=== PATIENT | male | born 1990 | race Caucasian/White ===

== ENCOUNTER 2020-01-08 11:12 | Emergency (ER) | payer SELFPAY ==
[~2020-01-08] VITALS: Ht 185.4 cm; Wt 77.5 kg
[~2020-01-08 11:12] MED LIST: NO HOME MEDS
[2020-01-08] MEDS ORDERED: CefTRIAXone 250MG IM Kit w/LIDOcaine IM ONE (12:45)
[2020-01-08] MEDS ORDERED: azithromycin 250mg tablet PO ONE (12:45)
[2020-01-08 12:52] LABS: CLARITY,URINE CLOUDY (Clear); COLOR,URINE YELLOW (Yellow); GLUCOSE, URINE NEGATIVE (Neg); KETONES,URINE NEGATIVE (Neg); LEUKOCYTE ESTERASE ,URINE LARGE (Neg); NITRITES, URINE NEGATIVE (Neg); OCCULT BLOOD,URINE TRACE-INTACT (Neg); PH,URINE 6.5 (4.8-8.0); PROTEIN,URINE NEGATIVE (Neg); UROBILINOGEN,URINE 0.2 E.U/dL (0.2-1.0)
[2020-01-08 12:53] LABS: UA COLLECTION TYPE CLN CATCH MIDSTREAM
[2020-01-08 12:59] VITALS: BP 125/71
[2020-01-08 13:03] LABS: BACTERIA,URINE FEW /HPF (Neg); MUCUS STRANDS FEW /LPF (Neg); RBC,URINE 0-2 /HPF (0-2); SQUAMOUS EPITHELIAL CELL,UR FEW /LPF (FEW); TRANSITIONAL EPI CELLS,URINE FEW /HPF; WBC,URINE 30-50 /HPF (0-4)
[2020-01-08 13:04] LABS: WBC CLUMPS,URINE MODERATE /HPF (NEGATIVE)
[2020-01-10 06:11] LABS: RPR Non Reactive (Non Reactive)
== END 2020-01-08 13:02 | disposition home or self-care (01) ==
LOC: ER 11:12
DX: R30.0 Dysuria (principal); Z11.3 Encounter for screening for infections with a predominantly sexual mode of transmission; F12.90 Cannabis use, unspecified, uncomplicated; F15.90 Other stimulant use, unspecified, uncomplicated
CPT/HCPCS: 36415; 81001; 86592; 87088; 87491; 87591; 96372; 99283; J0696

== ENCOUNTER 2021-07-09 08:41 | Emergency (ER) | payer MEDICAID ==
[~2021-07-09] VITALS: Ht 188 cm; Wt 71.5 kg
[2021-07-09 09:04] VITALS: BP 120/72
== END 2021-07-09 09:13 | disposition home or self-care (01) ==
LOC: ER 08:42
DX: F15.20 Other stimulant dependence, uncomplicated (principal); R00.0 Tachycardia, unspecified; F12.90 Cannabis use, unspecified, uncomplicated; Z72.89 Other problems related to lifestyle
CPT/HCPCS: 99281

== ENCOUNTER 2021-07-21 08:03 | Emergency (ER) | payer MEDICAID ==
[~2021-07-21] VITALS: Ht 188 cm; Wt 77.3 kg
[2021-07-21 08:11] VITALS: BP 126/74
== END 2021-07-21 09:14 | disposition home or self-care (01) ==
LOC: ER 08:03
DX: F15.20 Other stimulant dependence, uncomplicated (principal); F12.90 Cannabis use, unspecified, uncomplicated; Z72.89 Other problems related to lifestyle
CPT/HCPCS: 99281

== ENCOUNTER 2021-12-03 12:48 | Emergency (ER) | payer MEDICAID, OTHER ==
[~2021-12-03] VITALS: Ht 188 cm; Wt 71.8 kg
[2021-12-03 13:15] VITALS: BP 133/82
== END 2021-12-04 02:31 | disposition left against medical advice (07) ==
LOC: ER 12:49
DX: M54.2 Cervicalgia (principal); Z53.21 Procedure and treatment not carried out due to patient leaving prior to being seen by health care provider
CPT/HCPCS: 72125

== ENCOUNTER 2023-08-12 21:05 | Emergency (ER) | payer MEDICAID, OTHER, SELFPAY ==
[~2023-08-12] VITALS: Ht 188 cm; Wt 80.0 kg
[2023-08-12 23:31] LABS: BASOPHILS % (AUTO) 0.3 % (0-1); EOSINOPHILS # (AUTO) 0.1 X10'3 (0-0.9); EOSINOPHILS % (AUTO) 0.6 % (0-6); HEMATOCRIT 44.6 % (42.0-52.0); HEMOGLOBIN 15.1 g/dl (14.0-17.9); LYMPHOCYTES # (AUTO) 1.7 X10'3 (1.1-4.8); LYMPHOCYTES % (AUTO) 16.7 % (21-51); MEAN CORPUSCULAR HEMOGLOBIN 29.8 PG (27.0-31.0); MEAN CORPUSCULAR HGB CONC 33.8 g/dL (33.0-36.5); MEAN CORPUSCULAR VOLUME 88.1 FL (78-98); MEAN PLATELET VOLUME 9.2 FL (7.4-10.4); MONOCYTES # (AUTO) 0.5 X10'3 (0-0.9); MONOCYTES % (AUTO) 4.6 % (2-12); NEUTROPHILS % (AUTO) 77.8 % (42-75); PLATELET COUNT 187 X10'3 (140-440); RED BLOOD COUNT 5.06 X10'6 (4.70-6.10); RED CELL DISTRIBUTION WIDTH 13.5 % (11.5-14.5); WHITE BLOOD COUNT 10.2 X10'3 (4.5-11.0)
[2023-08-12 23:46] LABS: ANION GAP 2 (8-16); BILIRUBIN,TOTAL 0.7 MG/DL (0.1-1.0); BLOOD UREA NITROGEN 12 MG/DL (7-18); BUN/CREATININE RATIO 11.9 (10.0-20.0); CALCIUM 9.4 MG/DL (8.5-10.1); CHLORIDE 104 MMOL/L (99-107); CREATININE 1.01 MG/DL (0.60-1.10); GLUCOSE 106 MG/DL (70-104); POTASSIUM 4.4 MMOL/L (3.5-5.1); SODIUM 137 MMOL/L (135-145); TOTAL CARBON DIOXIDE 30.7 MMOL/L (24-32); eCRCL 119 ML/MIN; eGFR 86 ML/MIN
[2023-08-12 23:47] LABS: ALANINE AMINOTRANSFERASE 24 U/L (12-78); ALBUMIN 4.1 G/DL (3.4-5.0); ALBUMIN/GLOBULIN RATIO 1.1 (1.1-1.5); ALKALINE PHOSPHATASE 84 IU/L (46-116); ASPARTATE AMINO TRANSFERASE 16 U/L (10-37); ETHANOL < 10 MG/DL (<10); SALICYLATE 3.8 MG/DL (4.0-20.0)
[2023-08-12 23:50] LABS: ACETAMINOPHEN < 2.0 UG/ML (10-30)
[2023-08-12 23:54] LABS: URINE AMPHETAMINE SCREEN NEGATIVE (Neg); URINE BARBITUATE SCREEN NEGATIVE (Neg); URINE BENZODIAZEPINES SCREEN NEGATIVE (Neg); URINE CANNABINOID SCREEN NEGATIVE (Neg); URINE COCAINE SCREEN NEGATIVE (Neg); URINE METHADONE SCREEN NEGATIVE (Neg); URINE OPIATE SCREEN NEGATIVE (Neg); URINE PHENCYCLIDINE SCREEN NEGATIVE (Neg)
--- NOTE | 2023-08-13 04:39 | NUR ---
moved pt from hallway into room 13
--- NOTE | 2023-08-13 06:14 | NUR ---
safety and security officer states she will be bringing clerk typist for the [facility] monitor.
--- NOTE | 2023-08-13 08:31 | NUR ---
Patient currently sleeping comfortably, breathing normally
--- NOTE | 2023-08-13 09:21 | NUR ---
Patient sleeping at this time, a wrapped sandwich on the floor. Patient knocked on the wall of his room not too long ago. When I went to the [facility], 3 or 4 hospital security personnel were outside the room. I asked what was going on. One of the security told me that patient got upset because they had to remove the hospital phone at bedside as it should not be in the room.
--- NOTE | 2023-08-13 13:15 | NUR ---
Patient admitted still feeling depressed and has suicidal ideation. Snack offered to patient, not shown any interest. I did requested for a lunch tray for him
--- NOTE | 2023-08-13 13:18 | NUR ---
Per lab, they can still use the original urine sample sent last night for UA ordered today
[2023-08-13 13:43] LABS: BILIRUBIN,URINE NEGATIVE (Neg); CLARITY,URINE CLEAR (Clear); COLOR,URINE YELLOW (Yellow); GLUCOSE, URINE NEGATIVE (Neg); KETONES,URINE NEGATIVE (Neg); LEUKOCYTE ESTERASE ,URINE NEGATIVE (Neg); NITRITES, URINE NEGATIVE (Neg); OCCULT BLOOD,URINE SMALL (Neg); PROTEIN,URINE NEGATIVE (Neg); UROBILINOGEN,URINE 0.2 E.U/dL (0.2-1.0)
[2023-08-13 13:53] LABS: UA COLLECTION TYPE CLN CATCH MIDSTREAM
[2023-08-13 13:54] LABS: BACTERIA,URINE FEW /HPF (Neg); MUCUS STRANDS FEW /LPF (Neg); RBC,URINE 0-2 /HPF (0-2); SQUAMOUS EPITHELIAL CELL,UR FEW /LPF (FEW); WBC,URINE 0-4 /HPF (0-4)
--- NOTE | 2023-08-13 14:18 | NUR ---
tech faxed pt packet to [facility]
--- NOTE | 2023-08-13 18:50 | NUR ---
Patient brought from main ER. No report provided. Patient is oriented X4, he complains of S/I. He has a plan to hang self. Patient states his fiance left him yesterday. Patient is linear. He speaks in a calm voice. Patient states he at "[facility]." Patient is wearing an ankle braclet. He states his education officer knows he is here.
--- NOTE | 2023-08-13 19:00 | NUR ---
Patient is sleeping quietly in a low fowlers position.
--- NOTE | 2023-08-13 20:09 | NUR ---
Patient report given to [facility]. Patient is being considered for admission. TSH ordered.
[2023-08-13 20:53] LABS: THYROID STIMULATING HORMONE 0.78 ulU/ml (0.34-4.50)
--- NOTE | 2023-08-13 21:52 | NUR ---
Patient has been accepted to [facility] in [place]. Accepting PA is Ja. Patient will transfer around in AM.
--- NOTE | 2023-08-13 22:54 | NUR ---
pt. sleeping quietly in low fowlers position on right side.
--- NOTE | 2023-08-14 01:07 | NUR ---
pt. lying on back in low fowlers position sleeping. no distress
--- NOTE | 2023-08-14 03:00 | NUR ---
pt. lying on right side sleeping. No distress.
--- NOTE | 2023-08-14 04:57 | NUR ---
pt. lying on left side sleeping . No distress.
[2023-08-14 06:05] VITALS: BP 88/48; PULSE 63; TEMP 98.2; O2SAT 98
--- NOTE | 2023-08-14 06:46 | NUR ---
Patient laying supine with his eyes closed. Patient re-adjusted. No distress observed. Continue to monitor.
--- NOTE | 2023-08-14 08:23 | NUR ---
RN awoke patient for breakfast. Patient awoke and went back to sleep. Continue to monitor.
[2023-08-14 08:25] VITALS: RESP 16
--- NOTE | 2023-08-14 10:26 | NUR ---
Patient got up and demanded to go home. RN advised patient that he is on a hold and cannot go. Patient states "You better call Security because I'm about to lose my shit. I want my stuff and I'm going home." RN called Security for standby. Patient was laying in bed. RN asked patient if I gave him some oral Ativan would he take it. Patient stated yes. RN to get order. Continue to monitor. Security at nurse's station.
[2023-08-14] MEDS ORDERED: LORazepam 1 MG tablet PO ONE (10:35)
--- NOTE | 2023-08-14 10:41 | NUR ---
Patient states he hasn't eaten in 4 days. Patient states it's not because of the food, it's because he is depressed. Patient took the medication and laid back down. Continue to monitor.
--- NOTE | 2023-08-14 11:20 | NUR ---
RN gave patient an Ativan for his anxiety. Patient asked RN if this would effect his [facility]. RN said no and gave him the medication. RN later thought about it and thought it might affect the patient's status. RN called the [facility] and left them a message since they are closed today. It was my fault he took the medication. Patient was negative for all drugs on arrival to the hospital.
== END 2023-08-14 11:25 ==
LOC: ER 21:06
DX: R45.851 Suicidal ideations (principal); Z20.822 Contact with and (suspected) exposure to COVID-19
CPT/HCPCS: 36415; 80053; 80305; 80320; 80329; 81001; 84443; 85025; 87811; 99285

== ENCOUNTER 2024-03-08 08:53 | Emergency (ER) | payer MEDICAID ==
[~2024-03-08] VITALS: Ht 188 cm; Wt 81.0 kg
[2024-03-08 09:07] VITALS: BP 90/72; PULSE 98; RESP 15; TEMP 99.3; O2SAT 97
[2024-03-08] MEDS ORDERED: AZIT-164 PO (09:33)
== END 2024-03-08 09:46 | disposition home or self-care (01) ==
LOC: ER 08:54
DX: J40 Bronchitis, not specified as acute or chronic (principal); F12.90 Cannabis use, unspecified, uncomplicated; F15.90 Other stimulant use, unspecified, uncomplicated
CPT/HCPCS: 71045; 99283

== ENCOUNTER 2024-05-27 17:02 | Emergency (ER) | payer MEDICAID ==
[~2024-05-27] VITALS: Ht 188 cm; Wt 68.2 kg
[2024-05-27] MEDS: levetiracetam 250mg tablet PO ONE (18:17)
[2024-05-27 18:34] LABS: EOSINOPHILS # (AUTO) 0.1 X10'3 (0-0.9); MONOCYTES # (AUTO) 0.5 X10'3 (0-0.9); WHITE BLOOD COUNT 6.8 X10'3 (4.5-11.0)
[2024-05-27 18:36] LABS: BASOPHILS % (AUTO) 0.3 % (0-1); EOSINOPHILS % (AUTO) 1.2 % (0-6); HEMATOCRIT 40.9 % (42.0-52.0); LYMPHOCYTES % (AUTO) 29.9 % (21-51); MEAN CORPUSCULAR HEMOGLOBIN 30.4 PG (27.0-31.0); MEAN CORPUSCULAR HGB CONC 34.2 g/dL (33.0-36.5); MEAN CORPUSCULAR VOLUME 88.8 FL (78-98); MEAN PLATELET VOLUME 7.8 FL (7.4-10.4); MONOCYTES % (AUTO) 7.8 % (2-12); NEUTROPHILS # (AUTO) 4.1 X10'3 (1.8-7.7); NEUTROPHILS % (AUTO) 60.8 % (42-75); PLATELET COUNT 263 X10'3 (140-440); RED CELL DISTRIBUTION WIDTH 15.1 % (11.5-14.5)
[2024-05-27 18:52] LABS: BILIRUBIN,URINE SMALL (Neg); CLARITY,URINE CLEAR (Clear); COLOR,URINE YELLOW (Yellow); GLUCOSE, URINE NEGATIVE (Neg); KETONES,URINE 15 mg/dl (Neg); LEUKOCYTE ESTERASE ,URINE NEGATIVE (Neg); NITRITES, URINE NEGATIVE (Neg); OCCULT BLOOD,URINE TRACE-INTACT (Neg); PH,URINE 6.5 (4.8-8.0); PROTEIN,URINE NEGATIVE (Neg); UROBILINOGEN,URINE 0.2 E.U/dL (0.2-1.0)
[2024-05-27 18:55] LABS: ALANINE AMINOTRANSFERASE 20 U/L (12-78); ALBUMIN 4.2 G/DL (3.4-5.0); ALBUMIN/GLOBULIN RATIO 1.2 (1.1-1.5); ALKALINE PHOSPHATASE 81 IU/L (46-116); ANION GAP 10 (8-16); ASPARTATE AMINO TRANSFERASE 15 U/L (10-37); BILIRUBIN,TOTAL 0.8 MG/DL (0.1-1.0); BLOOD UREA NITROGEN 8 MG/DL (7-18); BUN/CREATININE RATIO 9.1 (10.0-20.0); CALCIUM 9.4 MG/DL (8.5-10.1); CHLORIDE 102 MMOL/L (99-107); CREATININE 0.88 MG/DL (0.60-1.10); GLUCOSE 96 MG/DL (70-104); POTASSIUM 3.5 MMOL/L (3.5-5.1); SODIUM 140 MMOL/L (135-145); TOTAL PROTEIN 7.7 G/DL (6.4-8.2); eCRCL 115 ML/MIN; eGFR > 90 ML/MIN
[2024-05-27 18:57] LABS: UA COLLECTION TYPE CLN CATCH MIDSTREAM
[2024-05-27 18:59] LABS: BACTERIA,URINE FEW /HPF (Neg); MUCUS STRANDS MODERATE /LPF (Neg); SQUAMOUS EPITHELIAL CELL,UR FEW /LPF (FEW); WBC,URINE 0-4 /HPF (0-4)
[2024-05-27 19:01] LABS: ETHANOL < 10 MG/DL (<10)
[2024-05-27 19:06] LABS: URINE AMPHETAMINE SCREEN POSITIVE (Neg); URINE BARBITUATE SCREEN NEGATIVE (Neg); URINE BENZODIAZEPINES SCREEN NEGATIVE (Neg); URINE CANNABINOID SCREEN NEGATIVE (Neg); URINE COCAINE SCREEN NEGATIVE (Neg); URINE METHADONE SCREEN NEGATIVE (Neg); URINE OPIATE SCREEN NEGATIVE (Neg); URINE PHENCYCLIDINE SCREEN NEGATIVE (Neg)
[2024-05-27] MEDS ORDERED: KEP500T PO (20:01)
[2024-05-27 20:11] VITALS: BP 130/67; PULSE 95; RESP 18; TEMP 98; O2SAT 99
== END 2024-05-27 20:13 | disposition home or self-care (01) ==
LOC: ER 17:02
DX: R56.9 Unspecified convulsions (principal); F12.90 Cannabis use, unspecified, uncomplicated; F15.90 Other stimulant use, unspecified, uncomplicated
CPT/HCPCS: 36415; 70450; 80053; 80305; 80320; 81001; 85025; 93005; 99285

== ENCOUNTER 2024-06-08 12:19 | Emergency (ER) | payer MEDICAID ==
[~2024-06-08] VITALS: Ht 175.3 cm; Wt 64.5 kg
[~2024-06-08 12:19] MED LIST changes: +KEP500T PO
[2024-06-08 12:21] VITALS: TEMP 98
[2024-06-08] MEDS ORDERED: LEVE500T PO (12:53)
[2024-06-08 13:34] LABS: BASOPHILS % (AUTO) 0.4 % (0-1); EOSINOPHILS # (AUTO) 0.1 X10'3 (0-0.9); EOSINOPHILS % (AUTO) 1.2 % (0-6); HEMATOCRIT 42.3 % (42.0-52.0); HEMOGLOBIN 14.3 g/dl (14.0-17.9); LYMPHOCYTES # (AUTO) 1.6 X10'3 (1.1-4.8); LYMPHOCYTES % (AUTO) 26.4 % (21-51); MEAN CORPUSCULAR HEMOGLOBIN 30.1 PG (27.0-31.0); MEAN CORPUSCULAR HGB CONC 33.9 g/dL (33.0-36.5); MEAN CORPUSCULAR VOLUME 88.7 FL (78-98); MEAN PLATELET VOLUME 8.1 FL (7.4-10.4); MONOCYTES # (AUTO) 0.6 X10'3 (0-0.9); MONOCYTES % (AUTO) 9.6 % (2-12); NEUTROPHILS # (AUTO) 3.9 X10'3 (1.8-7.7); NEUTROPHILS % (AUTO) 62.4 % (42-75); PLATELET COUNT 259 X10'3 (140-440); RED BLOOD COUNT 4.77 X10'6 (4.70-6.10); WHITE BLOOD COUNT 6.2 X10'3 (4.5-11.0)
[2024-06-08 13:48] LABS: ALANINE AMINOTRANSFERASE 18 U/L (12-78); ALBUMIN 4.2 G/DL (3.4-5.0); ALBUMIN/GLOBULIN RATIO 1.2 (1.1-1.5); ALKALINE PHOSPHATASE 94 IU/L (46-116); ANION GAP 11 (8-16); ASPARTATE AMINO TRANSFERASE 25 U/L (10-37); BILIRUBIN,TOTAL 0.6 MG/DL (0.1-1.0); BLOOD UREA NITROGEN 20 MG/DL (7-18); BUN/CREATININE RATIO 17.9 (10.0-20.0); CALCIUM 9.4 MG/DL (8.5-10.1); CHLORIDE 103 MMOL/L (99-107); CREATININE 1.12 MG/DL (0.60-1.10); GLUCOSE 96 MG/DL (70-104); POTASSIUM 3.8 MMOL/L (3.5-5.1); SODIUM 138 MMOL/L (135-145); TOTAL CARBON DIOXIDE 24.3 MMOL/L (24-32); TOTAL PROTEIN 7.8 G/DL (6.4-8.2); eCRCL 86 ML/MIN; eGFR 76 ML/MIN
[2024-06-08] MEDS: levetiracetam 250mg tablet PO ONE (14:56)
[2024-06-08] MEDS ORDERED: LEVE10002 PO (15:02)
[2024-06-08 15:05] VITALS: BP 118/77; PULSE 99; RESP 16; O2SAT 99
== END 2024-06-08 15:11 | disposition home or self-care (01) ==
LOC: ER 12:20
DX: G40.802 Other epilepsy, not intractable, without status epilepticus (principal); F12.90 Cannabis use, unspecified, uncomplicated; F15.90 Other stimulant use, unspecified, uncomplicated; Z72.89 Other problems related to lifestyle
CPT/HCPCS: 36415; 80053; 80177; 85025; 99284

== ENCOUNTER 2024-06-13 15:42 | Emergency (ER) | payer MEDICAID ==
[~2024-06-13] VITALS: Ht 188 cm; Wt 75.0 kg
[~2024-06-13 15:42] MED LIST changes: -KEP500T PO; +LEVE10002 PO; +LEVE500T PO; -NO HOME MEDS
[2024-06-13] MEDS: normal saline 1000ML IV soln IVB ONE (16:05)
[2024-06-13 16:45] LABS: BASOPHILS % (AUTO) 0.2 % (0-1); EOSINOPHILS # (AUTO) 0.1 X10'3 (0-0.9); EOSINOPHILS % (AUTO) 1.4 % (0-6); HEMATOCRIT 40.7 % (42.0-52.0); HEMOGLOBIN 13.8 g/dl (14.0-17.9); LYMPHOCYTES # (AUTO) 1.8 X10'3 (1.1-4.8); LYMPHOCYTES % (AUTO) 23.9 % (21-51); MEAN CORPUSCULAR HEMOGLOBIN 30.1 PG (27.0-31.0); MEAN CORPUSCULAR HGB CONC 33.8 g/dL (33.0-36.5); MEAN PLATELET VOLUME 8.1 FL (7.4-10.4); MONOCYTES # (AUTO) 0.5 X10'3 (0-0.9); MONOCYTES % (AUTO) 6.5 % (2-12); NEUTROPHILS # (AUTO) 5.2 X10'3 (1.8-7.7); PLATELET COUNT 255 X10'3 (140-440); RED BLOOD COUNT 4.57 X10'6 (4.70-6.10); RED CELL DISTRIBUTION WIDTH 15.2 % (11.5-14.5); WHITE BLOOD COUNT 7.6 X10'3 (4.5-11.0)
[2024-06-13] MEDS: LORazepam 2 mg/ml vial IV ONE ×2 (16:51)
[2024-06-13] MEDS: LORazepam 2 mg/ml vial ONE (16:51)
[2024-06-13] MEDS: levetiracetam inj 500 MG in normal saline 100ml IV soln 100 ML IV ONE (17:07)
[2024-06-13 17:36] LABS: ALANINE AMINOTRANSFERASE 23 U/L (12-78); ALBUMIN 3.6 G/DL (3.4-5.0); ALBUMIN/GLOBULIN RATIO 1.1 (1.1-1.5); ALKALINE PHOSPHATASE 95 IU/L (46-116); ANION GAP 8 (8-16); ASPARTATE AMINO TRANSFERASE 24 U/L (10-37); BILIRUBIN,TOTAL 0.3 MG/DL (0.1-1.0); BLOOD UREA NITROGEN 10 MG/DL (7-18); BUN/CREATININE RATIO 11.4 (10.0-20.0); CALCIUM 8.4 MG/DL (8.5-10.1); CHLORIDE 106 MMOL/L (99-107); CREATININE 0.88 MG/DL (0.60-1.10); GLUCOSE 92 MG/DL (70-104); MAGNESIUM 1.8 MG/DL (1.5-2.4); SODIUM 141 MMOL/L (135-145); TOTAL CARBON DIOXIDE 26.9 MMOL/L (24-32); TOTAL PROTEIN 6.8 G/DL (6.4-8.2); VALPROATE < 3.0 UG/ML (50-100); eCRCL 127 ML/MIN; eGFR > 90 ML/MIN
[2024-06-13] MEDS ORDERED: LEVE10002 PO (18:42)
[2024-06-13 19:17] VITALS: BP 112/68; PULSE 75; RESP 16; TEMP 98.4; O2SAT 97
== END 2024-06-13 19:21 | disposition home or self-care (01) ==
LOC: ER 15:42
DX: G40.89 Other seizures (principal); F12.90 Cannabis use, unspecified, uncomplicated; F15.90 Other stimulant use, unspecified, uncomplicated; Z79.899 Other long term (current) drug therapy; Z72.89 Other problems related to lifestyle
CPT/HCPCS: 36415; 80053; 80164; 80177; 83735; 85025; 96361; 96365; 96375; 99285; J1953; J2060; J7030

== ENCOUNTER 2024-06-14 16:57 | Emergency (ER) | payer MEDICAID ==
[~2024-06-14] VITALS: Ht 188 cm; Wt 75.0 kg
[2024-06-14 17:07] VITALS: TEMP 98.4
[2024-06-14] MEDS: HYDROcodone/acetaminophen 10/325mg tab PO ONE (17:51)
[2024-06-14] MEDS: ketorolac trometh. 30mg/ml inj. IV ONE (18:00)
[2024-06-14 18:02] LABS: BASOPHILS % (AUTO) 0.3 % (0-1); EOSINOPHILS # (AUTO) 0.1 X10'3 (0-0.9); EOSINOPHILS % (AUTO) 1.7 % (0-6); HEMATOCRIT 42.6 % (42.0-52.0); HEMOGLOBIN 14.5 g/dl (14.0-17.9); LYMPHOCYTES # (AUTO) 1.9 X10'3 (1.1-4.8); LYMPHOCYTES % (AUTO) 24.9 % (21-51); MEAN CORPUSCULAR HEMOGLOBIN 30.4 PG (27.0-31.0); MEAN CORPUSCULAR VOLUME 89.4 FL (78-98); MEAN PLATELET VOLUME 8.3 FL (7.4-10.4); MONOCYTES # (AUTO) 0.6 X10'3 (0-0.9); MONOCYTES % (AUTO) 7.8 % (2-12); NEUTROPHILS # (AUTO) 5.1 X10'3 (1.8-7.7); NEUTROPHILS % (AUTO) 65.3 % (42-75); PLATELET COUNT 264 X10'3 (140-440); RED BLOOD COUNT 4.76 X10'6 (4.70-6.10); WHITE BLOOD COUNT 7.8 X10'3 (4.5-11.0)
[2024-06-14 18:05] VITALS: BP 122/87; PULSE 89; RESP 18; O2SAT 100
[2024-06-14 18:24] LABS: ALANINE AMINOTRANSFERASE 17 U/L (12-78); ALBUMIN 3.7 G/DL (3.4-5.0); ALBUMIN/GLOBULIN RATIO 1.1 (1.1-1.5); ALKALINE PHOSPHATASE 94 IU/L (46-116); ANION GAP 1 (8-16); ASPARTATE AMINO TRANSFERASE 12 U/L (10-37); BILIRUBIN,TOTAL 0.3 MG/DL (0.1-1.0); BLOOD UREA NITROGEN 7 MG/DL (7-18); BUN/CREATININE RATIO 8.1 (10.0-20.0); CALCIUM 9.4 MG/DL (8.5-10.1); CHLORIDE 106 MMOL/L (99-107); CREATININE 0.86 MG/DL (0.60-1.10); GLUCOSE 84 MG/DL (70-104); POTASSIUM 4.2 MMOL/L (3.5-5.1); SODIUM 137 MMOL/L (135-145); TOTAL CARBON DIOXIDE 30.4 MMOL/L (24-32); TOTAL PROTEIN 7.2 G/DL (6.4-8.2); eCRCL 130 ML/MIN; eGFR > 90 ML/MIN
== END 2024-06-14 18:36 | disposition home or self-care (01) ==
LOC: ER 16:58
DX: R56.9 Unspecified convulsions (principal); F12.90 Cannabis use, unspecified, uncomplicated; F15.90 Other stimulant use, unspecified, uncomplicated; Z79.2 Long term (current) use of antibiotics
CPT/HCPCS: 36415; 80053; 85025; 96374; 99284; J1885

== ENCOUNTER 2024-06-21 21:07 | Emergency (ER) | payer MEDICAID ==
[~2024-06-21] VITALS: Ht 188 cm; Wt 68.8 kg
[2024-06-21 21:36] LABS: BASOPHILS % (AUTO) 0.3 % (0-1); EOSINOPHILS # (AUTO) 0.1 X10'3 (0-0.9); EOSINOPHILS % (AUTO) 1.2 % (0-6); HEMATOCRIT 39.7 % (42.0-52.0); HEMOGLOBIN 13.5 g/dl (14.0-17.9); LYMPHOCYTES # (AUTO) 2.1 X10'3 (1.1-4.8); LYMPHOCYTES % (AUTO) 25.9 % (21-51); MEAN CORPUSCULAR HEMOGLOBIN 29.9 PG (27.0-31.0); MEAN CORPUSCULAR VOLUME 87.9 FL (78-98); MEAN PLATELET VOLUME 8.1 FL (7.4-10.4); MONOCYTES # (AUTO) 0.5 X10'3 (0-0.9); MONOCYTES % (AUTO) 6.1 % (2-12); NEUTROPHILS # (AUTO) 5.3 X10'3 (1.8-7.7); NEUTROPHILS % (AUTO) 66.5 % (42-75); PLATELET COUNT 252 X10'3 (140-440); RED BLOOD COUNT 4.52 X10'6 (4.70-6.10); RED CELL DISTRIBUTION WIDTH 14.9 % (11.5-14.5)
[2024-06-21 21:53] LABS: ALBUMIN 3.8 G/DL (3.4-5.0); ANION GAP 9 (8-16); BLOOD UREA NITROGEN 9 MG/DL (7-18); BUN/CREATININE RATIO 7.3 (10.0-20.0); CHLORIDE 102 MMOL/L (99-107); CREATININE 1.24 MG/DL (0.60-1.10); GLUCOSE 103 MG/DL (70-104); POTASSIUM 3.6 MMOL/L (3.5-5.1); PRO BRAIN NATRIURETIC PEPTIDE 82 PG/ML (0-125); SODIUM 137 MMOL/L (135-145); TOTAL CARBON DIOXIDE 25.7 MMOL/L (24-32); eCRCL 82 ML/MIN; eGFR 67 ML/MIN
[2024-06-21] MEDS: LORazepam 2 mg/ml vial IV ONE (23:03)
[2024-06-21 23:47] VITALS: BP 134/83; PULSE 102; RESP 12; O2SAT 98
[2024-06-21] MEDS: levetiracetam 250mg tablet PO ONE (23:55)
[2024-06-22 00:06] VITALS: TEMP 98.1
== END 2024-06-22 00:09 | disposition home or self-care (01) ==
LOC: ER 21:08
DX: R07.89 Other chest pain (principal); R56.9 Unspecified convulsions; F12.90 Cannabis use, unspecified, uncomplicated; F15.90 Other stimulant use, unspecified, uncomplicated; Z79.899 Other long term (current) drug therapy; Z72.89 Other problems related to lifestyle
CPT/HCPCS: 36415; 71045; 80048; 83880; 84484; 85025; 93005; 96374; 99285; J2060

== ENCOUNTER 2024-06-26 07:23 | Outpatient (CLI) | payer MEDICAID | END 2024-06-26 23:59 | disposition home or self-care (01) | LOC: RAD 07:23 | PROVIDERS: ATTEND Family Medicine | DX: R56.9 Unspecified convulsions (principal) | CPT/HCPCS: 95816 ==

== ENCOUNTER 2024-07-09 18:20 | Emergency (ER) | payer MEDICAID ==
[~2024-07-09] VITALS: Ht 188 cm; Wt 65.9 kg
[2024-07-09 18:22] VITALS: TEMP 98
[2024-07-09 19:47] VITALS: BP 124/89; PULSE 86; RESP 16; O2SAT 99
== END 2024-07-09 19:48 | disposition home or self-care (01) ==
LOC: ER 18:20
DX: G40.909 Epilepsy, unspecified, not intractable, without status epilepticus (principal); F12.90 Cannabis use, unspecified, uncomplicated; F15.90 Other stimulant use, unspecified, uncomplicated; Z79.899 Other long term (current) drug therapy
CPT/HCPCS: 99284

== ENCOUNTER 2024-07-20 10:43 | Emergency (ER) | payer MEDICAID ==
[~2024-07-20] VITALS: Ht 177.8 cm; Wt 74.0 kg
[2024-07-20 10:48] VITALS: BP 112/80; PULSE 80; RESP 16; TEMP 97.8; O2SAT 96
== END 2024-07-20 13:52 | disposition left against medical advice (07) ==
LOC: ER 10:43
DX: G40.89 Other seizures (principal); Z53.21 Procedure and treatment not carried out due to patient leaving prior to being seen by health care provider

== ENCOUNTER 2024-08-09 22:28 | Emergency (ER) | payer MEDICAID ==
[~2024-08-09] VITALS: Ht 188 cm; Wt 70.5 kg
[2024-08-09 23:01] LABS: BASOPHILS % (AUTO) 0.4 % (0-1); EOSINOPHILS # (AUTO) 0.2 X10'3 (0-0.9); EOSINOPHILS % (AUTO) 2.4 % (0-6); HEMATOCRIT 43.5 % (42.0-52.0); HEMOGLOBIN 15.2 g/dl (14.0-17.9); LYMPHOCYTES # (AUTO) 2.7 X10'3 (1.1-4.8); LYMPHOCYTES % (AUTO) 31.9 % (21-51); MEAN CORPUSCULAR HEMOGLOBIN 30.8 PG (27.0-31.0); MEAN CORPUSCULAR HGB CONC 34.9 g/dL (33.0-36.5); MEAN CORPUSCULAR VOLUME 88.3 FL (78-98); MEAN PLATELET VOLUME 8.4 FL (7.4-10.4); MONOCYTES # (AUTO) 0.6 X10'3 (0-0.9); MONOCYTES % (AUTO) 7.6 % (2-12); NEUTROPHILS # (AUTO) 4.8 X10'3 (1.8-7.7); NEUTROPHILS % (AUTO) 57.7 % (42-75); PLATELET COUNT 233 X10'3 (140-440); RED BLOOD COUNT 4.93 X10'6 (4.70-6.10); RED CELL DISTRIBUTION WIDTH 14.5 % (11.5-14.5); WHITE BLOOD COUNT 8.4 X10'3 (4.5-11.0)
[2024-08-09 23:18] LABS: ALBUMIN 3.5 G/DL (3.4-5.0); ANION GAP 3 (8-16); BLOOD UREA NITROGEN 15 MG/DL (7-18); BUN/CREATININE RATIO 17.4 (10.0-20.0); CALCIUM 8.9 MG/DL (8.5-10.1); CHLORIDE 104 MMOL/L (99-107); CREATININE 0.86 MG/DL (0.60-1.10); GLUCOSE 80 MG/DL (70-104); SODIUM 137 MMOL/L (135-145); THYROID STIMULATING HORMONE 1.87 ulU/ml (0.34-4.50); TOTAL CARBON DIOXIDE 30.4 MMOL/L (24-32); eCRCL 122 ML/MIN; eGFR > 90 ML/MIN
[2024-08-09 23:20] LABS: ETHANOL < 10 MG/DL (<10)
[2024-08-09] MEDS: charcoal, activated 50 GM/240 ML bottle PO ONE (23:50)
[2024-08-10 09:06] LABS: BILIRUBIN,URINE NEGATIVE (Neg); CLARITY,URINE CLEAR (Clear); COLOR,URINE YELLOW (Yellow); GLUCOSE, URINE NEGATIVE (Neg); KETONES,URINE NEGATIVE (Neg); LEUKOCYTE ESTERASE ,URINE NEGATIVE (Neg); NITRITES, URINE NEGATIVE (Neg); OCCULT BLOOD,URINE TRACE-INTACT (Neg); PROTEIN,URINE NEGATIVE (Neg); UROBILINOGEN,URINE 0.2 E.U/dL (0.2-1.0)
[2024-08-10 09:08] LABS: UA COLLECTION TYPE CLN CATCH MIDSTREAM
[2024-08-10 09:13] LABS: URINE AMPHETAMINE SCREEN POSITIVE (Neg); URINE BARBITUATE SCREEN NEGATIVE (Neg); URINE BENZODIAZEPINES SCREEN NEGATIVE (Neg); URINE CANNABINOID SCREEN NEGATIVE (Neg); URINE COCAINE SCREEN NEGATIVE (Neg); URINE METHADONE SCREEN NEGATIVE (Neg); URINE OPIATE SCREEN NEGATIVE (Neg); URINE PHENCYCLIDINE SCREEN NEGATIVE (Neg)
[2024-08-10 09:18] LABS: SQUAMOUS EPITHELIAL CELL,UR FEW /LPF (FEW)
[2024-08-10 09:19] LABS: BACTERIA,URINE NONE SEEN /HPF (Neg); RBC,URINE 0-2 /HPF (0-2); WBC,URINE 0-4 /HPF (0-4)
[2024-08-10 11:32] LABS: SALICYLATE 3.1 MG/DL (4.0-20.0)
[2024-08-10 11:33] LABS: ACETAMINOPHEN < 2.0 UG/ML (10-30)
[2024-08-10] MEDS ORDERED: NO HOME MEDS (13:06)
[2024-08-10 17:25] LABS: ALANINE AMINOTRANSFERASE 25 U/L (12-78); ALBUMIN 3.4 G/DL (3.4-5.0); ALKALINE PHOSPHATASE 97 IU/L (46-116); ANION GAP 5 (8-16); ASPARTATE AMINO TRANSFERASE 18 U/L (10-37); BILIRUBIN,TOTAL 0.7 MG/DL (0.1-1.0); BLOOD UREA NITROGEN 9 MG/DL (7-18); CALCIUM 8.6 MG/DL (8.5-10.1); CHLORIDE 105 MMOL/L (99-107); CREATININE 0.82 MG/DL (0.60-1.10); GLUCOSE 97 MG/DL (70-104); POTASSIUM 4.1 MMOL/L (3.5-5.1); SODIUM 139 MMOL/L (135-145); TOTAL CARBON DIOXIDE 29.1 MMOL/L (24-32); TOTAL PROTEIN 6.8 G/DL (6.4-8.2); eCRCL 128 ML/MIN; eGFR > 90 ML/MIN
[2024-08-11] MEDS: OLANZapine 2.5MG tablet PO STA (02:44)
[2024-08-11] MEDS: ibuprofen 200mg tablet PO ONE (02:57)
[2024-08-11 11:56] VITALS: BP 96/54; PULSE 50; RESP 16; TEMP 97.2; O2SAT 97
== END 2024-08-11 11:55 ==
LOC: ER 22:29
DX: R45.851 Suicidal ideations (principal); Z20.822 Contact with and (suspected) exposure to COVID-19; F12.90 Cannabis use, unspecified, uncomplicated; F15.90 Other stimulant use, unspecified, uncomplicated; Z72.89 Other problems related to lifestyle; Z79.899 Other long term (current) drug therapy
CPT/HCPCS: 36415; 80048; 80053; 80305; 80320; 80329; 81001; 84443; 85025; 87811; 99285

== ENCOUNTER 2024-11-27 13:20 | Emergency (ER) | payer MEDICAID ==
[~2024-11-27] VITALS: Ht 188 cm; Wt 78.0 kg
[~2024-11-27 13:20] MED LIST changes: -LEVE10002 PO; -LEVE500T PO; +NO HOME MEDS
[2024-11-27] MEDS ORDERED: DOXY100C43 PO (15:09)
[2024-11-27 15:18] VITALS: BP 124/70; PULSE 83; RESP 16; TEMP 98.4; O2SAT 98
== END 2024-11-27 15:19 | disposition home or self-care (01) ==
LOC: ER 13:21
DX: S81.801A Unspecified open wound, right lower leg, initial encounter (principal); F15.90 Other stimulant use, unspecified, uncomplicated; F12.90 Cannabis use, unspecified, uncomplicated; X58.XXXA Exposure to other specified factors, initial encounter; Y93.89 Activity, other specified; Y92.89 Other specified places as the place of occurrence of the external cause; Y99.8 Other external cause status
CPT/HCPCS: 73564; 99284